=== PATIENT | female | born 2000 | race African-American/Black ===

== ENCOUNTER 2021-07-18 03:06 | Emergency (ER) | payer OTHER, SELFPAY ==
[2021-07-18 03:15] VITALS: BP 110/66; PULSE 89; RESP 18; TEMP 36.6; O2SAT 100
[2021-07-18 04:39] LABS: Add Urine Microscopic? YES; Appearance Urine Clear (Clear); Bacteria Urine Trace /hpf; Bilirubin Urine Negative (Negative); Blood Urine 2+ (Negative); Color Urine Yellow (Yellow); Glucose Urine UA Negative (Negative); Ketones Urine Negative (Negative); Leukocyte Esterase Ur Negative LEU/UL (Negative); Mucus Urine Rare /lpf; Nitrate Urine Negative (Negative); Protein Urine Negative (Negative); RBC Urine 21-50 /hpf (0-2); Specific Grav Ur 1.017 (1.001-1.035); Squamous Epithelial Cell Urine Many /hpf (Few); Urobilinogen Urine Negative mg/dL (<2.0); WBC Urine 0-3 /hpf
[2021-07-18] MEDS: KETOROLAC (*BKC) 60 MG/2 ML VIAL IM (04:39)
--- NOTE | 2021-07-18 05:11 | ED.GENADULT ---
HPI - General Adult General Chief complaint: Upper Respiratory Infection Stated complaint: congestion, cough Time Seen by Provider: 07/18/21 03:59 History of Present Illness HPI narrative: Patient is a 21-year-old female who presents ER with sinus congestion and sore throat ongoing for the last day. No known fevers. Denies body aches. No known sick contacts. Reports she is having difficulty smelling due to his congestion but can still taste. She is unvaccinated against COVID-19. Patient also concerned she may have a UTI and to potentially be so she would also like to be checked for that as well. Related Data Allergies Allergy/AdvReac Type Severity Reaction Status Date / Time sulfamethoxazole Allergy Hives Verified 07/18/21 03:22 [From Bactrim] trimethoprim [From Bactrim] Allergy Hives Verified 07/18/21 03:22 Review of Systems Review of Systems: All systems reviewed & are unremarkable except as noted in HPI and below Constitutional: Constitutional: Denies chills, Denies fever(s) and Denies weakness ENT: Reports nasal congestion and Reports sore throat Cardiovascular: Cardiovascular: Denies chest pain, Denies rapid heart rate and Denies radiating jaw, neck or arm pain Respiratory: Respiratory: Reports cough, Denies dyspnea and Denies wheezing Gastrointestinal: Gastrointestinal: Denies nausea and Denies vomiting Genitourinary: Genitourinary: Reports nocturia, Denies dysuria and Denies flank pain PMFSH Past Medical History Medical History (Updated 07/18/21 @ 05:18 by Luis Romano MD) Healthy female adult Surgical History Surgical History (Updated 07/18/21 @ 05:14 by Luis Romano MD) No history of previous surgery Exam Narrative: GENERAL: Well-appearing, well-nourished, and in no acute distress. HEAD: Normocephalic, atraumatic. ENT: Mucous membranes moist. Mild pharyngeal erythema with no tonsillar exudate or hypertrophy. Uvula midline nonedematous. CHEST: Clear to auscultation. No respiratory distress. HEART: Regular rate and rhythm. Normal peripheral pulses. ABDOMEN: Soft, nontender, nondistended. EXTREMITIES: Normal range of motion. No edema. SKIN: Warm, dry, no rash. NEURO: Alert and oriented x3. Course Course Emergency Course: Unremarkable evaluation. Discharge home. Self isolate until Covid results return. Discussed symptomatic therapy and patient verbalized understanding. Vital Signs Vital signs: Vital Signs Temperature 97.8 F 07/18/21 03:15 Pulse Rate 89 07/18/21 03:15 Respiratory Rate 18 07/18/21 03:15 Blood Pressure 110/66 07/18/21 03:15 Pulse Oximetry 100 07/18/21 03:15 Temperature 97.8 F 07/18/21 03:15 Pulse Rate 89 07/18/21 03:15 Respiratory Rate 18 07/18/21 03:15 Blood Pressure 110/66 07/18/21 03:15 Pulse Oximetry 100 07/18/21 03:15 Medical Decision Making Vital Signs Vital Signs: Vital Signs Temperature 97.8 F 07/18/21 03:15 Pulse Rate 89 07/18/21 03:15 Respiratory Rate 18 07/18/21 03:15 Blood Pressure 110/66 07/18/21 03:15 Pulse Oximetry 100 07/18/21 03:15 Temperature 97.8 F 07/18/21 03:15 Pulse Rate 89 07/18/21 03:15 Respiratory Rate 18 07/18/21 03:15 Blood Pressure 110/66 07/18/21 03:15 Pulse Oximetry 100 07/18/21 03:15 Lab Data Labs: Lab Results 07/18/21 07/18/21 Range/Units 04:20 04:27 Urine Color Yellow (Yellow) Urine Appearance Clear (Clear) Urine pH 7.0 (5.0-9.0) Ur Specific [place] 1.017 (1.001-1.035) Urine Protein Negative (Negative) mg/dL Urine Glucose (UA) Negative (Negative) mg/dL Urine Ketones Negative (Negative) mg/dL Ur Blood (Man) 2+ H (Negative) Urine Nitrate Negative (Negative) Urine Bilirubin Negative (Negative) Urine Urobilinogen Negative (<2.0) mg/dL Leukocyte Esterase Rfl Negative (Negative) LEA/UL Urine RBC 21-50 H (0-2) /hpf Urine WBC 0-3 /hpf Ur Squamous Epith Cells
[2021-07-18 18:03] LABS: SARS-CoV-2 RNA PCR Negative
== END 2021-07-18 05:42 | disposition home or self-care (01) ==
PROVIDERS: Emergency Provider Emergency Medicine; PCP Physician Assistant
DX: J06.9 Acute upper respiratory infection, unspecified (principal); Z20.822 Contact with and (suspected) exposure to COVID-19
CPT/HCPCS: 81001; 81025; 96372; 99283; C9803; J1885; U0003; U0005

== ENCOUNTER 2021-08-13 12:28 | Emergency (ER) | payer OTHER, SELFPAY ==
[2021-08-13 12:55] VITALS: BP 140/93; PULSE 116; RESP 20; TEMP 36.6; O2SAT 100
[2021-08-13 14:17] VITALS: BP 110/58; PULSE 80
[2021-08-13 14:19] LABS: Basophils Percent Auto 0.6 % (0.2-1.2); Eosinophils Percent Auto 0.6 % (0-4.4); Hematocrit 40.1 % (37.0-47.0); Hemoglobin 13.7 g/dL (12.0-15.0); Immature Granulocyte Absolute 0.01 K/mm3 (0.00-0.031); Immature Granulocyte Percent A 0.2 % (0-0.5); Lymphocytes Absolute Auto 1.74 K/mm3 (0.9-3.2); Lymphocytes Percent Auto 33.9 % (18.3-44.2); Mean Corpuscular HGB Conc 34.2 g/dl (32-36); Mean Corpuscular Hemoglobin 30.9 pg (26-34); Mean Corpuscular Volume 90.5 fl (80-100); Mean Platelet Volume 10.6 fl (7.4-10.4); Monocytes Absolute Auto 0.4 K/mm3 (0.1-0.6); Neutrophils Percent Auto 57.7 % (45.5-73.1); Platelet Count Result 241 k/mm3 (150-375); Red Blood Count 4.43 M/mm3 (4.2-5.4); White Blood Count 5.1 K/mm3 (4.5-10.0)
[2021-08-13 14:30] LABS: Alanine Aminotransferase 10 U/L (4-35); Albumin Level 4.7 g/dL (3.5-5.1); Alkaline Phosphatase 64 U/L (38-126); Anion Gap 8 mmol/L (8-16); Aspartate Amino Transferase 27 U/L (14-36); Bilirubin,Total 0.4 mg/dL (0.2-1.3); Blood Urea Nitrogen 9 mg/dL (7-17); Calcium 9.4 mg/dL (8.4-10.2); Carbon Dioxide 26 mmol/L (22-30); Chloride 108 mmol/L (98-107); Estimated CRCL calculation 90 ml/min; Estimated Glomerular Filt Rate > 60; Glucose 96 mg/dL (65-110); Potassium 3.7 mmol/L (3.4-5.0); Sodium 142 mmol/L (137-145)
[2021-08-13 14:46] LABS: Beta HCG Quantitative < 2.39 mIU/ML
[2021-08-13 15:11] VITALS: BP 110/69; PULSE 78; RESP 16; TEMP 37.1; O2SAT 100
--- NOTE | 2021-08-13 15:16 | ED.GENADULT ---
HPI - General Adult General Chief complaint: MAJOR ACCOUNT REPRESENTATIVE <Reinaldo Malin PA-C - Last Filed: 08/13/21 15:22> Stated complaint: Vaginal Bleeding, 4 Weeks <Reinaldo Malin PA-C - Last Filed: 08/13/21 15:22> Time Seen by Provider: 08/13/21 13:00 <ANGELY Brandon Last Filed: 08/13/21 15:22> Source: patient <ANGELY Brandon Last Filed: 08/13/21 15:22> Mode of arrival: ambulatory <ANGELY Brandon Last Filed: 08/13/21 15:22> Limitations: no limitations <ANGELY Brandon Last Filed: 08/13/21 15:22> History of Present Illness HPI narrative: Patient presents with chief complaint of vaginal bleeding after having a positive home test. Patient states that she is attempting to get . Patient reports that she is due to have her menstrual cycle today, but she had a positive home test at home she was not sure what to do. Patient states the bleeding was like a normal menstrual period flow. Patient reports that she is in the process of becoming a patient at [facility]. Patient denies any intense abdominal cramping, clot passage, intense pain, fever, chills or any other emergent symptoms. <Reinaldo Malin PA-C - Last Filed: 08/13/21 15:22> Related Data Home medications: Home Medications Medication Instructions Recorded Confirmed No Home Medications 08/13/21 08/13/21 <Reinaldo Malin PA-C - Last Filed: 08/13/21 15:22> Allergies/adverse reactions: Allergies Allergy/AdvReac Type Severity Reaction Status Date / Time sulfamethoxazole Allergy Hives Verified 08/13/21 12:57 [From Bactrim] trimethoprim [From Bactrim] Allergy Hives Verified 08/13/21 12:57 <ANGELY Brandon Last Filed: 08/13/21 15:22> Review of Systems Review of Systems: CONSTITUTIONAL: Denies fever, chills, or sweats. EYES: Denies visual changes, redness, or discharge. ENT: Denies rhinorrhea, congestion, sore throat, or otalgia. CARDIOVASCULAR: Denies chest pain, palpitations, or edema. RESPIRATORY: Denies cough or dyspnea. GASTROINTESTINAL: Denies abdominal pain, nausea, vomiting, or diarrhea. GENITOURINARY: Reports vaginal bleeding denies dysuria or hematuria. SKIN: Denies rash or itching. MUSCULOSKELETAL: Denies back pain, joint pain, or myalgia. NEUROLOGIC: Denies headache, numbness, dizziness, or weakness. PSYCHIATRIC: Denies anxiety or depression. <Reinaldo Malin PA-C - Last Filed: 08/13/21 15:22> [facility] Past Medical History Medical History: Medical History (Updated 08/13/21 @ 15:21 by Reinaldo Malin PA-C) Healthy female adult <Reinaldo Malin PA-C - Last Filed: 08/13/21 15:22> Surgical History Surgical History: Surgical History (Updated 07/18/21 @ 05:14 by Luis Romano MD) No history of previous surgery <Reinaldo Malin PA-C - Last Filed: 08/13/21 15:22> Exam Narrative: GENERAL: Well-appearing, well-nourished, and in no acute distress. HEAD: Normocephalic, atraumatic. EYES: PERRLA and EOMI. CHEST: Clear to auscultation. No respiratory distress. No wheezes rales or rhonchi HEART: Regular rate and rhythm. No murmur heard. Normal peripheral pulses. ABDOMEN: Soft, nontender, nondistended, normal active bowel sounds. EXTREMITIES: Normal range of motion. No edema. SKIN: Warm, dry, no rash. NEURO: No focal deficits. Alert and oriented x3. PSYCH: Normal mood and affect. <Reinaldo Malin PA-C - Last Filed: 08/13/21 15:22> Course [employer]HER/PA Physician Supervision I did not see this patient nor was the care plan discussed with me. I was available for evaluation and consultation, I agree with the documentation as above <Flip Justice MD - Last Filed: 08/13/21 17:23> Vital Signs Vital signs: Vital Signs Temperature 36.6 C 08/13/21 12:55 Pulse Rate 116 H 08/13/21 12:55 Respiratory Rate 20 08/13/21 12:55 Blood Pressure 140/93 H 08/13/21 12:55 Pulse Oximetry 100 08/13/21 12:55
== END 2021-08-13 15:35 | disposition home or self-care (01) ==
PROVIDERS: Physician Assistant; Emergency Provider Emergency Medicine
DX: Z03.89 Encounter for observation for other suspected diseases and conditions ruled out (principal)
CPT/HCPCS: 36415; 80053; 81025; 84702; 85025; 85461; 99283

== ENCOUNTER 2021-12-16 01:34 | Emergency (ER) | payer OTHER, SELFPAY ==
[2021-12-16 01:44] VITALS: BP 122/95; PULSE 90; RESP 18; TEMP 37.1; O2SAT 100
--- NOTE | 2021-12-16 02:01 | ED.NAVMDI ---
HPI - Nausea/Vomiting/Diarrhea General Chief complaint: Nausea/Vomiting/Diarrhea Stated complaint: N/V/D X 3 DAYS, BURNING WITH URINATION, MAYBE PREG Time Seen by Provider: 12/16/21 01:52 Source: patient Mode of arrival: EMS Limitations: no limitations History of Present Illness HPI Narrative: Patient is a 21-year-old female complaining of nausea, vomiting, diarrhea and burning on urination x3 days. Patient describes her vomitus is nonbilious nonbloody. Patient describes her diarrhea as loose watery, nonbloody. Patient denies any chest pain, shortness of breath, abdominal pain, back pain, hematuria, fever or chills. Related Data Allergies Allergy/AdvReac Type Severity Reaction Status Date / Time sulfamethoxazole Allergy Hives Verified 12/16/21 01:47 [From Bactrim] trimethoprim [From Bactrim] Allergy Hives Verified 12/16/21 01:47 Review of Systems Review of Systems: All systems reviewed & are unremarkable except as noted in HPI and below Constitutional: Constitutional: Denies body ache(s), Denies chills, Denies excessive sweating, Denies fatigue, Denies fever(s), Denies headache(s), Denies lethargy, Denies malaise, Denies weakness and Denies weight loss Eyes: Eyes: Denies blurry vision, Denies change in vision and Denies loss of vision ENT: Denies dizziness, Denies ear discharge, Denies headache(s), Denies lip swelling, Denies epistaxis, Denies nasal congestion, Denies neck pain, Denies throat swelling and Denies tongue swelling Cardiovascular: Cardiovascular: Denies chest pain, Denies chest pain at rest, Denies chest pain with activity, Denies diaphoresis, Denies rapid heart rate, Denies edema, Denies irregular heart rhythm, Denies lightheadedness, Denies palpitations, Denies dyspnea and Denies dyspnea on exertion Respiratory: Respiratory: Denies chest congestion, Denies cough, Denies hemoptysis, Denies dyspnea and Denies dyspnea on exertion Gastrointestinal: Gastrointestinal: Denies abdominal pain, Denies melena, Denies hematochezia and Denies hematemesis Musculoskeletal: Musculoskeletal: Denies abnormal gait, Denies deformity, Denies joint swelling, Denies limited range of motion, Denies neck pain and Denies numbness Neurologic: Denies Abnormal speech present, Denies abnormal gait, Denies confusion, Denies dizziness, Denies headache(s), Denies focal weakness, Denies loss of vision, Denies numbness, Denies Other visual disturbances, Denies Sensory deficit (Neuro) and Denies weakness Psychiatric: Psychiatric: Denies confusion, Denies depression, Denies auditory hallucinations, Denies homicidal ideation and Denies suicidal ideation Endocrine: Endocrine: Denies cold intolerance, Denies excessive sweating, Denies fatigue, Denies heat intolerance and Denies palpitations Hematologic/Lymphatic: Hematologic/Lymphatic: Denies easy bleeding and Denies easy bruising Allergic/Immunologic: Allergic/Immunologic: Denies lip swelling, Denies throat swelling and Denies tongue swelling PMFSH Past Medical History Medical History Healthy female adult Surgical History Surgical History No history of previous surgery Comments Past medical history: None Family history: None Social history: Non-smoker no EtOH or drug use Exam Const: General: cooperative, healthy appearing, comfortable, no acute distress, well developed, alert and awake; No confusion Orientation/consciousness: oriented to person, oriented to place, oriented to time, patient oriented x3 and No confusion Limitations: no limitations HENMT: Head: normal to inspection, normocephalic and atraumatic Ears: hearing grossly normal bilaterally, TM normal on the right and TM normal on the left General nose exam: Normal external nose present, Normal nares present and No nasal discharge present Face and sinus: normal facial exam Mouth: Yes Normal oral and palatal mucosa p
[2021-12-16] MEDS: SODIUM CHLORIDE 0.9% IV 1,000 ML 999 ML IV CONT (02:11)
[2021-12-16] MEDS: ONDANSETRON INJ 4 MG/2 ML VIAL IV PUSH (02:11)
[2021-12-16 02:18] LABS: Basophils Percent Auto 0.2 % (0.2-1.2); Eosinophils Percent Auto 0.1 % (0-4.4); Hematocrit 37.3 % (37.0-47.0); Hemoglobin 12.7 g/dL (12.0-15.0); Immature Granulocyte Absolute 0.04 K/mm3 (0.00-0.031); Immature Granulocyte Percent A 0.5 % (0-0.5); Lymphocytes Absolute Auto 1.76 K/mm3 (0.9-3.2); Lymphocytes Percent Auto 21.4 % (18.3-44.2); Mean Corpuscular Hemoglobin 30.8 pg (26-34); Mean Corpuscular Volume 90.3 fl (80-100); Mean Platelet Volume 10.7 fl (7.4-10.4); Monocytes Absolute Auto 0.5 K/mm3 (0.1-0.6); Monocytes Percent Auto 5.7 % (2.6-8.5); Neutrophils Absolute Auto 5.9 K/mm3 (1.3-6.7); Neutrophils Percent Auto 72.1 % (45.5-73.1); Platelet Count Result 226 k/mm3 (150-375); Red Blood Count 4.13 M/mm3 (4.2-5.4); Red Cell Distribution Width 13.2 % (11.5-14.5); White Blood Count 8.2 K/mm3 (4.5-10.0)
[2021-12-16 02:21] LABS: Alanine Aminotransferase 10 U/L (4-35); Albumin Level 4.4 g/dL (3.5-5.1); Alkaline Phosphatase 60 U/L (38-126); Anion Gap 9 mmol/L (8-16); Aspartate Amino Transferase 21 U/L (14-36); Bilirubin,Total 0.3 mg/dL (0.2-1.3); Blood Urea Nitrogen 13 mg/dL (7-17); Calcium 8.8 mg/dL (8.4-10.2); Carbon Dioxide 23 mmol/L (22-30); Chloride 107 mmol/L (98-107); Estimated CRCL calculation 71 ml/min; Estimated Glomerular Filt Rate > 60; Glucose 109 mg/dL (65-110); Lipase 367 U/L (23-300); Potassium 3.4 mmol/L (3.4-5.0); Sodium 139 mmol/L (137-145)
--- NOTE | 2021-12-16 02:56 | PC.NURSE ---
Lab contacted at this time to find out delay on UA.
[2021-12-16 03:25] LABS: Add Urine Microscopic? YES; Appearance Urine Clear (Clear); Bacteria Urine 1+ /hpf; Bilirubin Urine Negative (Negative); Blood Urine 2+ (Negative); Color Urine Amber (Yellow); Glucose Urine UA Negative (Negative); Ketones Urine Negative (Negative); Leukocyte Esterase Ur 2+ LEU/UL (Negative); Mucus Urine Rare /lpf; Nitrate Urine Positive (Negative); Protein Urine 2+ mg/dL (Negative); RBC Urine 51-75 /hpf (0-2); Specific Grav Ur 1.021 (1.001-1.035); Squamous Epithelial Cell Urine Few /hpf (Few); WBC Clumps Urine Present /HPF; WBC Urine >75 /hpf
[2021-12-16] MEDS: CEPHALEXIN 500 MG CAPSULE PO (03:25)
[2021-12-16 03:26] VITALS: BP 112/85; PULSE 80; RESP 16; O2SAT 99
== END 2021-12-16 03:30 | disposition home or self-care (01) ==
PROVIDERS: Emergency Provider Emergency Medicine
DX: K52.9 Noninfective gastroenteritis and colitis, unspecified (principal); N39.0 Urinary tract infection, site not specified
CPT/HCPCS: 36415; 80053; 81001; 81025; 83690; 85025; 87077; 87086; 87088; 87186; 96361; 96374; 99284; A9270; J2405; J7030

== ENCOUNTER 2022-04-20 22:43 | Emergency (ER) | payer OTHER, SELFPAY ==
--- NOTE | ~2022-04-20 | XR_ITS ---
EXAMINATION: XR chest 2V Exam Date/Time: 04/20/2022 21:25 CDT HISTORY: chest pain, sob WORSE 4 DAYS, SWELLING IN THROAT Comparison: None available. RESULT: Lines, tubes, and devices: None. Lungs and pleura: Clear. Cardiomediastinal silhouette: Normal cardiomediastinal silhouette. Other: No acute osseous or upper abdominal finding. IMPRESSION: No acute cardiopulmonary process. Reviewed, dictated and finalized at location K.
--- NOTE | 2022-04-20 21:05 | ECG_ITS ---
Measurements Intervals [place] Rate: 81 P: 57 [place]: 132 QRS: 66 QRSD: 86 T: 20 QT: 309 QTc: 361 Interpretive Statements SINUS RHYTHM WITH MARKED SINUS ARRHYTHMIA NONSPECIFIC T-WAVE ABNORMALITY NO PREVIOUS ECG AVAILABLE FOR COMPARISON Electronically Signed On 04-21-2022 12:40:13 CDT by Jessy Valentine M.D.
[2022-04-20 21:06] VITALS: BP 139/90; PULSE 83; RESP 18; TEMP 36.4; O2SAT 100
[2022-04-20 21:37] LABS: Basophils Percent Auto 0.3 % (0.2-1.2); Eosinophils Absolute Auto 0.1 K/mm3 (0-0.3); Hemoglobin 12.3 g/dL (12.0-15.0); Immature Granulocyte Absolute 0.02 K/mm3 (0.00-0.031); Immature Granulocyte Percent A 0.3 % (0-0.5); Lymphocytes Absolute Auto 2.39 K/mm3 (0.9-3.2); Mean Corpuscular HGB Conc 33.2 g/dl (32-36); Mean Corpuscular Hemoglobin 30.3 pg (26-34); Mean Corpuscular Volume 91.1 fl (80-100); Mean Platelet Volume 9.8 fl (7.4-10.4); Monocytes Absolute Auto 0.4 K/mm3 (0.1-0.6); Neutrophils Absolute Auto 3.1 K/mm3 (1.3-6.7); Neutrophils Percent Auto 52.4 % (45.5-73.1); Platelet Count Result 339 k/mm3 (150-375); Red Blood Count 4.06 M/mm3 (4.2-5.4); Red Cell Distribution Width 13.2 % (11.5-14.5)
[2022-04-20 21:47] LABS: Alanine Aminotransferase 10 U/L (6-35); Albumin Level 4.2 g/dL (3.5-5.1); Alkaline Phosphatase 63 U/L (38-126); Anion Gap 6 mmol/L (8-16); Aspartate Amino Transferase 18 U/L (14-36); Bilirubin,Total 0.1 mg/dL (0.2-1.3); Blood Urea Nitrogen 9 mg/dL (7-17); Calcium 8.6 mg/dL (8.4-10.2); Carbon Dioxide 25 mmol/L (22-30); Chloride 108 mmol/L (98-107); Estimated CRCL calculation 102 ml/min; Estimated Glomerular Filt Rate > 60; Glucose 87 mg/dL (65-110); Lipase 65 U/L (23-300); Potassium 3.4 mmol/L (3.4-5.0); Sodium 139 mmol/L (137-145)
[2022-04-20 21:48] LABS: INR 1.1; Partial Thromboplastin Time 26.3 SECONDS (22.3-36.8); Prothrombin Time 13.6 Seconds (11.1-14.7)
[2022-04-20 21:59] LABS: Troponin I < 0.012 ng/mL (0.000-0.034)
--- NOTE | 2022-04-20 22:52 | PC.NURSE ---
pt left before seeing provider at this time. pt states my ride is about to leave so I have to go.
== END 2022-04-20 23:16 | disposition left against medical advice (07) ==
PROVIDERS: Emergency Provider Emergency Medicine; PCP Physician Assistant
DX: R51.9 Headache, unspecified (principal)
CPT/HCPCS: 36415; 71046; 80053; 83690; 84484; 85025; 85610; 85730; 93005; 99199

== ENCOUNTER 2022-04-22 13:35 | Emergency (ER) | payer OTHER, SELFPAY ==
--- NOTE | ~2022-04-22 | XR_ITS ---
EXAMINATION: XR chest 2V 04/22/2022 14:19 INDICATION: Elevated d-dimer. Chest pain. PROCEDURE: 2 view chest COMPARISON: 04/20/2022 FINDINGS: The lungs are clear. The cardiomediastinal silhouette is within normal limits. There are no pleural effusions. There is no pneumothorax suspected. IMPRESSION: 1: NO ACUTE CARDIOPULMONARY DISEASE. Reviewed, dictated and finalized at location A.
--- NOTE | ~2022-04-22 | CT_ITS ---
EXAMINATION: CTA chest PE protocol DATE: 04/22/2022 14:45 INDICATION: Chest pain. Elevated d-dimer. TECHNIQUE: Computed tomography angiography (CTA) of the chest was performed with 100 mL Omnipaque-350 intravenous contrast timed to evaluate the pulmonary arteries. Coronal maximum intensity projection 3D-reconstructions were created by the technologist. Automated exposure control and iterative reconst ruction technique were employed. Exam dose: 189.41 mGy-cm total exam DLP. COMPARISON: 04/22/2022 2 view chest FINDINGS: There is diagnostic contrast enhancement of the pulmonary arteries and no evidence of pulmo nary embolism. No thoracic aortic aneurysm or dissection. No hilar or mediastinal mass lesion or lymphadenopathy. Normal heart size. No pericardial or pleural effusion. No pulmonary infiltrate or consolidation or pulmonary mass lesion. Included skeletal structures are unremarkable. IMPRESSION: Negative examination; no evidence of pulmonary embolism Reviewed, dictated and finalized at Location A. Reviewed, dictated and finalized at location B.
[2022-04-22 13:36] VITALS: BP 130/88; PULSE 94; RESP 20; TEMP 36.9; O2SAT 100
--- NOTE | 2022-04-22 13:37 | ECG_ITS ---
Measurements Intervals [place] Rate: 102 P: 71 [place]: 141 QRS: 66 QRSD: 85 T: -5 QT: 270 QTc: 353 Interpretive Statements SINUS TACHYCARDIA NONSPECIFIC ST & T-WAVE ABNORMALITY COMPARED TO ECG 04/20/2022 21:18:45 SINUS TACHYCARDIA NOW PRESENT Electronically Signed On 04-22-2022 18:09:01 CDT by Jessy Valentine M.D.
--- NOTE | 2022-04-22 13:38 | ED.CHESTPAIN ---
HPI - Chest Pain General Chief Complaint: Chest Pain Stated Complaint: CP x 1 Week & ear pain History of Present Illness HPI narrative: 22-year-old female with no medical history presents to the emergency room via EMS for evaluation of chest pain has been present for 1 week. Patient states the pain is sharp and stabbing, and exacerbated with movements and respiration. Related Data Allergies Allergy/AdvReac Type Severity Reaction Status Date / Time sulfamethoxazole Allergy Hives Verified 04/22/22 13:43 [From Bactrim] trimethoprim [From Bactrim] Allergy Hives Verified 04/22/22 13:43 Review of Systems Review of Systems: CONSTITUTIONAL: Denies fever, chills, or sweats. EYES: Denies visual changes, redness, or discharge. ENT: Denies rhinorrhea, congestion, sore throat, or otalgia. CARDIOVASCULAR: Reports chest pain RESPIRATORY: Denies cough or dyspnea. GASTROINTESTINAL: Denies abdominal pain, nausea, vomiting, or diarrhea. GENITOURINARY: Denies dysuria or hematuria. SKIN: Denies rash or itching. MUSCULOSKELETAL: Denies back pain, joint pain, or myalgia. NEUROLOGIC: Denies headache, numbness, dizziness, or weakness. PSYCHIATRIC: Denies anxiety or depression. [facility] Past Medical History Medical History Healthy female adult Surgical History Surgical History No history of previous surgery Exam Narrative: GENERAL: Well-appearing, well-nourished, no physical limitations, and in no acute distress. HEAD: Normocephalic, atraumatic. EYES: Conjunctivae normal, PERRLA and EOMI. ENT: External nose normal, Nares clear, no rhinorrhea or epistaxis. Mucous membranes moist. Oropharynx without tonsillar hypertrophy exudate or other lesions. External ears normal, bilateral TMs normal bilaterally with cerumen gnosis CHEST: Clear to auscultation. No respiratory distress. No wheezes rales or rhonchi. No tenderness. HEART: Regular rate and rhythm. No murmur heard. Normal peripheral pulses. ABDOMEN: Soft, nontender, nondistended, normal active bowel sounds. EXTREMITIES: Normal range of motion. No edema. No clubbing or cyanosis SKIN: Warm, dry, no rash. No noted wounds NEURO: No focal deficits. Alert and oriented x3. MAEW. CN's II-XI intact bilaterally, normal gait PSYCH: Cooperative. Normal mood and affect. Course Vital Signs Vital signs: Vital Signs Temperature 36.9 C 04/22/22 13:36 Pulse Rate 94 04/22/22 13:36 Respiratory Rate 20 04/22/22 13:36 Blood Pressure 130/88 04/22/22 13:36 Pulse Oximetry 100 04/22/22 13:36 Oxygen Delivery Room Air 04/22/22 13:36 Temperature 36.9 C 04/22/22 13:36 Pulse Rate 94 04/22/22 13:36 Respiratory Rate 20 04/22/22 13:36 Blood Pressure 130/88 04/22/22 13:36 Pulse Oximetry 100 04/22/22 13:36 Oxygen Delivery Room Air 04/22/22 13:36 MDM - Chest Pain MDM Narrative Medical decision making narrative: 22-year-old female presented emergency room for evaluation of chest pain. Exam is without any evidence of volume overload. EKG without signs of ischemia. Single troponin was negative. D-dimer was slightly elevated, CTA of the chest showed no evidence of a PE. Chest x-ray shows no evidence of pericarditis or pneumonia. Heart score 0 patient was given Toradol here in the emergency room and resolved her pain. Patient experiencing either chest pain due to fluid shifts or possibly pleurodynia. Lab Data Result diagrams: 04/22/22 13:48 04/22/22 13:48 Labs: Lab Results 04/22/22 04/22/22 04/22/22 Range/Units 13:48 13:48 13:48 WBC 5.7 (4.5-10.0) K/mm3 RBC 4.10 L (4.2-5.4) M/mm3 Hgb 12.3 (12.0-15.0) g/dL Hct 36.6 L (37.0-47.0) % MCV 89.3 (80-100) fl MCH 30.0 (26-34) pg MCHC 33.6 (32-36) g/dl RDW 13.2 (11.5-14.5) % Plt Count 316 (150-375) k/mm3 MPV 9.9 (7.4-10.4) fl I
[2022-04-22 13:58] LABS: Basophils Percent Auto 0.3 % (0.2-1.2); Eosinophils Percent Auto 0.3 % (0-4.4); Hematocrit 36.6 % (37.0-47.0); Hemoglobin 12.3 g/dL (12.0-15.0); Immature Granulocyte Absolute 0.01 K/mm3 (0.00-0.031); Immature Granulocyte Percent A 0.2 % (0-0.5); Lymphocytes Absolute Auto 2.52 K/mm3 (0.9-3.2); Mean Corpuscular HGB Conc 33.6 g/dl (32-36); Mean Corpuscular Volume 89.3 fl (80-100); Mean Platelet Volume 9.9 fl (7.4-10.4); Monocytes Absolute Auto 0.3 K/mm3 (0.1-0.6); Monocytes Percent Auto 5.9 % (2.6-8.5); Neutrophils Absolute Auto 2.8 K/mm3 (1.3-6.7); Neutrophils Percent Auto 49.3 % (45.5-73.1); Platelet Count Result 316 k/mm3 (150-375); Red Cell Distribution Width 13.2 % (11.5-14.5); White Blood Count 5.7 K/mm3 (4.5-10.0)
[2022-04-22] MEDS: KETOROLAC 30 MG/ML VIAL (*BKC) IV PUSH (14:03)
[2022-04-22 14:08] LABS: Alanine Aminotransferase 10 U/L (6-35); Albumin Level 4.4 g/dL (3.5-5.1); Alkaline Phosphatase 68 U/L (38-126); Anion Gap 8 mmol/L (8-16); Aspartate Amino Transferase 23 U/L (14-36); Bilirubin,Total 0.3 mg/dL (0.2-1.3); Blood Urea Nitrogen 4 mg/dL (7-17); Calcium 8.8 mg/dL (8.4-10.2); Carbon Dioxide 26 mmol/L (22-30); Chloride 105 mmol/L (98-107); Estimated CRCL calculation 89 ml/min; Estimated Glomerular Filt Rate > 60; Glucose 91 mg/dL (65-110); Potassium 3.3 mmol/L (3.4-5.0); Sodium 139 mmol/L (137-145)
[2022-04-22 14:23] LABS: Troponin I < 0.012 ng/mL (0.000-0.034)
[2022-04-22 14:26] LABS: Appearance Urine Clear (Clear); Bilirubin Urine Negative (Negative); Blood Urine 2+ (Negative); Color Urine Yellow (Yellow); Glucose Urine UA Negative (Negative); Ketones Urine Negative (Negative); Leukocyte Esterase Ur Negative LEU/UL (Negative); Nitrate Urine Negative (Negative); Protein Urine Negative (Negative); Specific Grav Ur 1.015 (1.001-1.035); pH Urine 8.5 (5.0-9.0)
[2022-04-22] MEDS: SODIUM CHLORIDE 0.9% IV 1,000 ML 999 ML IV CONT (14:34)
[2022-04-22 14:38] LABS: Bacteria Urine Trace /hpf; Mucus Urine Rare /lpf; Squamous Epithelial Cell Urine Rare /hpf (Few); WBC Urine 0-3 /hpf
[2022-04-22 14:43] LABS: Add Urine Microscopic? YES
[2022-04-22 15:33] VITALS: BP 129/94; PULSE 72; RESP 18; O2SAT 97
== END 2022-04-22 15:35 | disposition home or self-care (01) ==
PROVIDERS: Emergency Provider Nurse Practitioner Family; PCP Physician Assistant
DX: R07.89 Other chest pain (principal); R00.0 Tachycardia, unspecified; R94.31 Abnormal electrocardiogram [ECG] [EKG]
CPT/HCPCS: 36415; 71046; 71275; 80053; 81001; 81025; 84484; 85025; 85380; 93005; 96361; 96374; 99284; J1885; J7030; Q9967